=== PATIENT | male | born 1995 | race Caucasian/White ===

== ENCOUNTER 2016-07-31 16:19 | Emergency (ER) | payer OTHER ==
[~2016-07-31] VITALS: Ht 182.9 cm; Wt 99.8 kg
[~2016-07-31 16:19] MED LIST: AUGMENTIN 875 M1 TAB PO; MEDROL DOSEPAK1 PAC PO; TESSALON PERLE100 MG PO
[2016-07-31 16:29] VITALS: BP 149/84
--- NOTE | 2016-07-31 17:35 | ED INFLUENZA/URI COMPLAINT ---
History of Present Illness General Chief Complaint: General Adult Stated Complaint: PER PT "I THINK I HAVE A COLD" Source: patient Exam Limitations: no limitations Vital Signs & Intake/Output Vital Signs & Intake/Output Vital Signs Date Time Temp Pulse Resp B/P Pulse O2 O2 Flow FiO2 Ox Delivery Rate 07/31 1629 97.8 113 20 149/84 98 Room Air Allergies Coded Allergies: pollen extracts (Mild, BODY ACHE, RUNNY NOSE, SORE THROAT 07/31/16) Reconcile Medications Azithromycin (Zithromax) 500 MG TABLET 1 TAB PO DAILY BRONCHITIS Benzonatate 100 MG CAPSULE 1 CAP PO TID COUGH (Reported) Benzonatate (Tessalon Perle) 100 MG CAPSULE 1 CAP PO TID PRN COUGH Levocetirizine Dihydrochloride 5 MG TABLET 1 TAB PO DAILY ALLERGIES (Reported ) Mometasone Furoate (Nasonex) 50 MCG SPRAY.PUMP 2 SPRAY NASB DAILY ALLERGIES ( Reported) Mometasone Furoate (Nasonex) 50 MCG SPRAY.PUMP 2 SPRAY NASB DAILY CONGESTION Robitussin AC (Guaifenesin-Codeine Syrup) 200 MG-20 MG/10 ML LIQUID 10 ML PO QPM PRN COUGH Triage Note: TRIAGE: PT TO ER C/C RUNNY NOSE, ACHES, SORE THROAT, DIZZINESS WITH POSITION CHANGES, NON PRODUCTIVE COUGH AND BURNING LUNG PAIN WITH COUGHING. X 10 DAYS. SAW PMD MONDAY AND WAS TOLD IT WAS ALLERGIES. PRESCRIBED ?ALLERGY MEDICATION AND USING SAME PRESCRIBED WITH NO RELIEF IN S/S. STATES FELT WARM AT TIME BUT HAS NOT CHECKED HIS TEMP. AFEBRILE AT TRIAGE. Triage Nurses Notes Reviewed? yes Onset: Gradual Duration: constant Timing: recent history Severity: moderate Severity Numbers: 5 HPI: Patient is a 21-year-old male with an unremarkable past medical history who presents to emergency with a 10 day history of nonproductive cough nasal congestion chills and generalized weakness and fatigue. Patient was evaluated by urgent care facility 1 week ago was given antihistamine medications with no improvement of symptoms. Patient is an every day smoker. Patient states that father had similar symptoms however his symptoms are gone now. Denies any fevers States he had a sore throat on the first day however no sore throat for the past 9 days. Denies any neck pain neck stiffness, sinus pain, ear pain, shortness of breath abdominal pain rash Past History Travel History Traveled to [place] past 21 day No Medical History Any Pertinent Medical History? 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 No Review of Systems Review of Systems Constitutional: Reports: see HPI. EENTM: Reports: see HPI. Respiratory: Reports: see HPI, cough. Cardiovascular: Reports: no symptoms. GI: Reports: no symptoms. Genitourinary: Reports: no symptoms. Musculoskeletal: Reports: no symptoms. Skin: Reports: no symptoms. Neurological/Psychological: Reports: no symptoms. Hematologic/Endocrine: Reports: no symptoms. Immunologic/Allergic: Reports: no symptoms. All Other Systems: Reviewed and Negative Physical Exam Physical Exam General Appearance: no apparent distress, alert, comfortable Ears, Nose, Throat: hearing grossly normal, Tympanic normal, pharynx normal, nasal congestion, nasal drainage Comments: Well-developed well-nourished person in no acute distress HEENT extraocular motion intact, no nystagmus. Pupils equally round and reactive to light and accommodation. Nose is atraumatic. External auditory canal and Tympanic membranes clear. Pharynx normal. No swelling or edema. Nontender sinuses Neck: Supple, no lymphadenopathy, normal range of motion without pain or tenderness Back: Nontender, no CVA tenderness. Cardiovascular: Regular rate and rhythms no murmurs rubs or gallops, normal JVP Respiratory: Chest nontender. No respiratory distress.breath sounds clear to auscultation bilaterally Abdomen: Soft, nontender nondistended, no appreciable organomegaly. Normal bowel sounds. No ascites Extremity: No edema, no calf tenderness to palpation, normal and equal pulses. Neuro: Alert oriented x3, motor sensory normal, Skin: No appreciable rash on exposed skin, skin is warm and dry. Psych: Mood and affect is normal, memory and judgment is normal. Core Measures Severe Sepsis Present: No Septic Shock Present: No Progress Differential Diagnosis: influenza, meningitis, neutropenia, otitis, pneumonia, pharyngitis, sinusitis Plan of Care: Patient currently has clear lungs auscultation afebrile nontoxic appearing and will be treated for concerns of bronchitis. Patient was highly advised to discontinue smoking and follow up with primary care doctor as dictated in discharge instructions. Initial ED EKG: none Departure Departure Disposition: HOME OR SELF CARE Condition: Stable Clinical Impression Primary Impression: Bronchitis Referrals: ANAY BUNDY APRN (PCP/Family) Additional Instructions: As discussed please discontinue smoking. Begin the prescription of azithromycin for the full course. Begin the prescription OF TESSALON PERLES and Robitussin with codeine for cough. If symptoms worsen return to emergency room. Begin [id number] Mucinex and Sudafed for congestion. Begin the prescription Nasonex for congestion. If symptoms do not improve in one week follow-up with your primary care doctor Departure Forms: Customer Survey General Discharge Information Prescriptions: Current Visit Scripts Benzonatate (Tessalon Perle) 1 CAP PO TID PRN COUGH #21 CAP Robitussin AC (Guaifenesin-Codeine Syrup) 10 ML PO QPM PRN COUGH #100 ML Azithromycin (Zithromax) 1 TAB PO DAILY #5 TAB Mometasone Furoate (Nasonex) 2 SPRAY NASB DAILY #1 INHAL
[2016-07-31] MEDS ORDERED: LEVOCETIRIZINE D5 M1 PO (17:40)
[2016-07-31] MEDS ORDERED: BENZONATATE100 M1 PO (17:40)
[2016-07-31] MEDS ORDERED: NASONEX17 GM NASB ×2 (17:40→18:03)
[2016-07-31] MEDS ORDERED: TESSALON PERLE100 M1 PO (18:03)
[2016-07-31] MEDS ORDERED: ZITHROMAX500 M2 PO (18:03)
[2016-07-31] MEDS ORDERED: GUAIFENESIN-COD10 ML PO (18:03)
== END 2016-07-31 18:08 ==
LOC: ERH 16:19
DX: J40 Bronchitis, not specified as acute or chronic (principal); Z72.0 Tobacco use

== ENCOUNTER 2016-09-06 01:29 | Emergency (ER) | payer OTHER ==
[~2016-09-06 01:29] MED LIST changes: +BENZONATATE100 M1 PO; +GUAIFENESIN-COD10 ML PO; +LEVOCETIRIZINE D5 M1 PO; +NASONEX17 GM NASB; +TESSALON PERLE100 M1 PO; +ZITHROMAX500 M2 PO
[2016-09-06 02:28] LABS: ABSOLUTE BASOPHIL COUNT 0 /CUMM (0.0-0.2); ABSOLUTE EOSINOPHIL COUNT 0.3 /CUMM (0.0-0.7); ABSOLUTE GRANULOCYTE CT 4.8 /CUMM (1.4-6.5); ABSOLUTE LYMPH COUNT 3.5 /CUMM (1.2-3.4); ABSOLUTE MONOCYTE COUNT 0.9 /CUMM (0.10-0.60); BASOPHIL % 0.5 % (0.0-2.0); EOSINOPHIL % 3.6 % (0-5); GRANULOCYTE % 50.2 % (42.2-75.2); HEMATOCRIT 44.5 % (42-52); MEAN CORPUSCULAR HGB 29.4 PG (27.0-31.0); MEAN CORPUSCULAR HGB CONC 34.2 G/DL (33.0-37.0); MEAN CORPUSCULAR VOLUME 86.1 FL (80.0-94.0); MEAN PLATELET VOLUME 7.8 FL (7.4-10.4); PLATELET COUNT 431 /CUMM (130-400); RBC DISTRIBUTION WIDTH 13.5 % (11.5-14.5); RED BLOOD CELL CT 5.17 /CUMM (4.70-6.10); WHITE BLOOD CELL COUNT 9.6 /CUMM (4.8-10.8)
--- NOTE | 2016-09-06 02:54 | ED GI/GU/ABDOMINAL COMPLAINT ---
History of Present Illness General Chief Complaint: Abdominal Pain/Flank Pain Stated Complaint: RT SIDE BACK/FLANK PAIN Source: patient, old records Exam Limitations: no limitations Vital Signs & Intake/Output Vital Signs & Intake/Output Vital Signs Date Time Temp Pulse Resp B/P Pulse O2 O2 Flow FiO2 Ox Delivery Rate 09/06 0142 98.3 110 18 150/84 97 Room Air Allergies Coded Allergies: pollen extracts (Mild, BODY ACHE, RUNNY NOSE, SORE THROAT 07/31/16) Reconcile Medications Azithromycin (Zithromax) 500 MG TABLET 1 TAB PO DAILY BRONCHITIS Benzonatate 100 MG CAPSULE 1 CAP PO TID COUGH (Reported) Benzonatate (Tessalon Perle) 100 MG CAPSULE 1 CAP PO TID PRN COUGH Levocetirizine Dihydrochloride 5 MG TABLET 1 TAB PO DAILY ALLERGIES (Reported ) Mometasone Furoate (Nasonex) 50 MCG SPRAY.PUMP 2 SPRAY NASB DAILY ALLERGIES ( Reported) Mometasone Furoate (Nasonex) 50 MCG SPRAY.PUMP 2 SPRAY NASB DAILY CONGESTION Robitussin AC (Guaifenesin-Codeine Syrup) 200 MG-20 MG/10 ML LIQUID 10 ML PO QPM PRN COUGH Triage Note: PT NICKNAME LORENZO PT TO ED C/O RT FLANK AND RT GROIN PAIN OFF AND ON FOR 2-3 DAYS WITH +NAUSEA. DENIES V/D.DENIES UTI S/S. LAST BM WAS 2-3 HRS CARE COMPANION AND WAS NORMAL. Triage Nurses Notes Reviewed? yes HPI: Patient presents for evaluation of right flank pain. The pains have been intermittent over the past 3 weeks. The pains became worse over the last 48 hours. The pain is located over the right flank. Patient describes the pain as a dull pain at about a 6 out of 10 intensity. He has tried intermittent doses of Tylenol with inconsistent relief. Patient denies any associated nausea, vomiting, diarrhea, fever, chills, dysuria, hematuria. Past History Travel History Traveled to [place] past 21 day No Medical History Any Pertinent Medical History? 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 No Review of Systems Review of Systems Constitutional: Reports: no symptoms. EENTM: Reports: no symptoms. Respiratory: Reports: no symptoms. Cardiovascular: Reports: no symptoms. GI: Reports: see HPI. Genitourinary: Reports: no symptoms. Musculoskeletal: Reports: no symptoms. Skin: Reports: no symptoms. Neurological/Psychological: Reports: no symptoms. Hematologic/Endocrine: Reports: no symptoms. Immunologic/Allergic: Reports: no symptoms. All Other Systems: Reviewed and Negative Physical Exam Physical Exam Gastrointestinal: see below Comments: Gen.: Well-nourished, well-developed, no acute respiratory distress. Head: Normocephalic, atraumatic. Eyes: Normal inspection bilaterally Ears: Normal inspection bilaterally Nose: Normal inspection Throat/mouth : Moist mucosa Neck: Supple, full range of motion, no goiter Heart: Regular rate and rhythm, no murmurs rubs or gallops Lungs: Clear to auscultation bilaterally with normal air entry Chest: Nontender Back: Normal range of motion, mild tenderness over the right flank Abdomen: Soft, nontender, nondistended, normal bowel sounds Extremities: Normal range of motion grossly, equal radial pulses, no cyanosis clubbing or edema Neurologic: Cranial nerves grossly intact, speech is clear Skin: warm and dry Psychiatric: Calm, cooperative, no apparent delusions or hallucinations Core Measures ACS in differential dx? No Severe Sepsis Present: No Septic Shock Present: No Progress Differential Diagnosis: appendicitis, biliary colic, pancreatitis, pyelonephritis, ureterolithiasis Plan of Care: Orders Procedure Date/time Status LIPASE 09/06 212 Complete COMPREHENSIVE METABOLIC PANEL 09/06 212 Complete CBC WITHOUT DIFFERENTIAL 09/06 212 Complete AMYLASE 09/06 212 Complete URINALYSIS 09/06 0151 Complete Laboratory Tests 09/06/16 0215: Anion Gap 12, Estimated GFR > 60, BUN/Creatinine Ratio 14.3, Glucose 113 H, Calcium 10.3 H, Total Bilirubin 0.7, AST 135 H, ALT 257 H, Alkaline Phosphatase 94, Total Protein 8.4 H, Albumin 4.8, Globulin 3.6, Albumin/ Globulin Ratio 1.3, Amylase 37, Lipase 108, CBC w Diff NO MAN DIFF REQ, RBC 5.17 , MCV 86.1, MCH 29.4, RDW 13.5, MPV 7.8, Gran % 50.2, Lymphocytes % 36.5, Monocytes % 9.2, Eosinophils % 3.6, Basophils % 0.5, Absolute Granulocytes 4.8, Absolute Lymphocytes 3.5 H, Absolute Monocytes 0.9 H, Absolute Eosinophils 0.3 , Absolute Basophils 0, PUBS MCHC 34.2 09/06/16 0154: Urine Color YEL, Urine Clarity CLEAR, Urine pH 6.0, Ur Specific [place] >= 1.030 , Urine Protein TRACE H, Urine Ketones NEG, Urine Nitrite NEG, Urine Bilirubin NEG, Urine Urobilinogen 0.2, Ur Leukocyte Esterase NEG, Ur Microscopic SEDIMENT EXAMINED, Urine RBC 1-3, Ur Epithelial Cells RARE, Urine Mucus RARE, Urine Hemoglobin SMALL H, Urine Glucose NEG Diagnostic Imaging: Discussed w/RAD: CT Scan. Radiology Impression: PATIENT: WALLACE SANCHEZ PRESENT AGE: 21 PATIENT ACCOUNT NO: [id number] : 94 LOCATION: [facility] ORDERING PHYSICIAN: LEROY DEAN MD SERVICE DATE: 09/06/16 EXAM TYPE: CAT - CT ABD & PELVIS W/O IV CONTRAS EXAMINATION: CT ABDOMEN AND PELVIS WITHOUT CONTRAST CLINICAL INFORMATION: Right flank pain. Right renal colic. COMPARISON: Ultrasound abdomen limited 05/12/2015 TECHNIQUE: Multidetector volumetric imaging was performed from the superior aspect of the liver through the pubic symphysis. Sagittal and coronal reformatted images were obtained on the technologist's workstation. DLP: 629.3 mGy-cm FINDINGS: LUNG BASES: The visualized lung bases are unremarkable. LIVER, GALLBLADDER, AND BILIARY TREE: Diffuse fatty change of liver. No focal liver lesion. No intrahepatic bile duct dilatation The gallbladder is unremarkable with no evidence of radiopaque gallstones, gallbladder wall thickening, or obvious pericholecystic inflammatory changes. PANCREAS: Unremarkable. SPLEEN: Unremarkable. ADRENAL GLANDS: Unremarkable. KIDNEYS AND URETERS: The kidneys are normal in size, shape, and attenuation. No hydronephrosis, hydroureter, or calculi seen. No perinephric stranding. BLADDER: Unremarkable. GASTROINTESTINAL TRACT: The small and large bowel are unremarkable. The appendix is unremarkable. ABDOMINAL WALL: No significant hernia is appreciated. LYMPH NODES: Normal. VASCULAR: Unremarkable. PELVIC VISCERA: Unremarkable. OSSEOUS STRUCTURES: Unremarkable. IMPRESSION: No acute abnormality CT scan abdomen pelvis. Normal CT scan of kidney, ureter and bladder. Diffuse fatty change of liver. DICTATED BY: MYRA KELLY MD DATE/TIME DICTATED:09/06/16337 MARKETING ADMINISTRATIVE ASSISTANT:SONALI DATE/TIME TRANSCRIBED:337 CONFIDENTIAL, DO NOT COPY WITHOUT APPROPRIATE AUTHORIZATION. < Electronically signed in Other Vendor System> SIGNED BY: MYRA KELLY MD [id number] Initial ED EKG: none Comments: 09/06/2016 4:09:52 AM I have updated cemalettin on test results. Departure Departure Disposition: HOME OR SELF CARE Condition: Stable Clinical Impression Primary Impression: Flank pain Secondary Impressions: Fatty liver, Transaminitis Referrals: ANAY BUNDY APRN (PCP/Family) Additional Instructions: Increase your fluid intake over the next few days. Rest, no exertion or heavy lifting. Follow-up with your primary care physician for reevaluation and further testing this week. Return if any concerns or sudden worsening. Please note that there might be incidental findings in your evaluation that are unrelated to the current emergency department visit. Please notify your primary care doctor about this emergency department visit in order to obtain and review all of the testing performed so that these incidental findings can be monitored as needed. Please note that there might be incidental findings in your evaluation that are unrelated to the current emergency department visit. Please notify your primary care doctor about this emergency department visit in order to obtain and review all of the testing performed so that these incidental findings can be monitored as needed. If you had an x-ray performed, please understand that some fractures may not be seen on the initial set of x-rays. If your symptoms persist you might need a repeat set of x-rays to check for such a fracture. If you had a laceration evaluated, please understand that foreign bodies such as glass or wood may not be visible to the naked eye or on plain x-rays. If the wound becomes red, swollen, increasingly more painful or if there is any drainage from the wound, please have it reevaluated by a physician for the possibility of a retained foreign body. Thank you for choosing the [facility] Emergency Department for your care. It was a pleasure to serve you today. Leroy Dean M.D. [facility] Departure Forms: Customer Survey General Discharge Information Prescriptions: Current Visit Scripts Naproxen (Naprosyn) 1 TAB PO BID #20 TAB Cyclobenzaprine HCl 1 TAB PO TID PRN MUSCLE SPASMS #30 TAB
--- NOTE | 2016-09-06 03:46 | CT SCAN REPORT ---
EXAMINATION: CT ABDOMEN AND PELVIS WITHOUT CONTRAST CLINICAL INFORMATION: Right flank pain. Right renal colic. COMPARISON: Ultrasound abdomen limited 05/12/2015 TECHNIQUE: Multidetector volumetric imaging was performed from the superior aspect of the liver through the pubic symphysis. Sagittal and coronal reformatted images were obtained on the technologist's workstation. DLP: 629.3 mGy-cm FINDINGS: LUNG BASES: The visualized lung bases are unremarkable. LIVER, GALLBLADDER, AND BILIARY TREE: Diffuse fatty change of liver. No focal liver lesion. No intrahepatic bile duct dilatation The gallbladder is unremarkable with no evidence of radiopaque gallstones, gallbladder wall thickening, or obvious pericholecystic inflammatory changes. PANCREAS: Unremarkable. SPLEEN: Unremarkable. ADRENAL GLANDS: Unremarkable. KIDNEYS AND URETERS: The kidneys are normal in size, shape, and attenuation. No hydronephrosis, hydroureter, or calculi seen. No perinephric stranding. BLADDER: Unremarkable. GASTROINTESTINAL TRACT: The small and large bowel are unremarkable. The appendix is unremarkable. ABDOMINAL WALL: No significant hernia is appreciated. LYMPH NODES: Normal. VASCULAR: Unremarkable. PELVIC VISCERA: Unremarkable. OSSEOUS STRUCTURES: Unremarkable. IMPRESSION: No acute abnormality CT scan abdomen pelvis. Normal CT scan of kidney, ureter and bladder. Diffuse fatty change of liver.
[2016-09-06] MEDS ORDERED: CYCLOBENZAPRINE10 M1 PO (04:09)
[2016-09-06] MEDS ORDERED: NAPROSYN500 M1 PO (04:09)
[2016-09-06 04:17] VITALS: BP 146/78
== END 2016-09-06 04:17 ==
LOC: ERH 01:29
PROVIDERS: Emergency Medicine
DX: K76.0 Fatty (change of) liver, not elsewhere classified (principal); R74.0 Nonspecific elevation of levels of transaminase and lactic acid dehydrogenase [LDH]
CPT/HCPCS: 74176; 81001

== ENCOUNTER 2016-11-14 19:06 | Emergency (ER) | payer OTHER ==
[~2016-11-14] VITALS: Ht 175.3 cm; Wt 99.8 kg
[~2016-11-14 19:06] MED LIST changes: +CYCLOBENZAPRINE10 M1 PO; +NAPROSYN500 M1 PO
--- NOTE | 2016-11-14 22:05 | ED CARDIAC/CP/PALPITATIONS ---
History of Present Illness General Chief Complaint: Chest Pain Stated Complaint: CP Source: patient, family, old records Exam Limitations: no limitations Vital Signs & Intake/Output Vital Signs & Intake/Output Vital Signs Date Time Temp Pulse Resp B/P B/P Pulse O2 O2 Flow FiO2 Mean Ox Delivery Rate 11/14 2332 98.1 86 18 131/75 99 Room Air 11/14 2147 Room Air 11/14 1917 99.6 92 18 154/88 00 Room Air ED Intake and Output 11/15 0000 11/14 1200 Intake Total Output Total Balance Patient 220 lb Weight Allergies Coded Allergies: pollen extracts (Mild, BODY ACHE, RUNNY NOSE, SORE THROAT 07/31/16) Reconcile Medications Levocetirizine Dihydrochloride 5 MG TABLET 1 TAB PO DAILY ALLERGIES (Reported ) Naproxen (Naprosyn) 500 MG TABLET 1 TAB PO Q12H PRN pain Triage Note: PT TO ED C/O SQUEEZING CHEST PAIN SINCE 1 PM. WAS 7-8/10 FOR 2 HRS, NOW DOWN TO 4/10. LEFT ARM NUMB AND TINGLING APPROX 3 PM AFTER PAIN HAD STARTED GETTING BETTER. "I SNEEZED AND I FELT A SHOOTING PAIN DOWN MY RIGHT ARM" DENIES N/V/DIZZINESS. SOB COMES AND GOES. DENIES SOB AT THIS TIME. STATES CP ALSO HAPPENED 3 DAYS AGO BUT "IT OMLY LASTED FOR A COUPLE OF MINIUTES. NO CHANGE WITH PALPATION OR INSPIRATION AT THIS TIME. "PAIN MADE IT HARD TO BREATH" "I THOUGHT IT MIGHT BE A PANIC ATTACK" Triage Nurses Notes Reviewed? yes HPI: Patient is a 21-year-old male presents complaining of chest pain. Chest pain onset approximately 3 days ago lasted for a couple of minutes and resolved. Today pain returned at approximately 12:30 PM has been waxing and waning since onset. Pain is currently mild. Patient reports symptoms worsen with deep breath. Patient denies lower extremity pain, lower extremity swelling, cough, fevers, chills. (LULU SUAZO,MERYL) Past History Travel History Traveled to [place] past 21 day No Medical History Any Pertinent Medical History? see below for history Neurological: NONE EENT: NONE Cardiovascular: hypertension Respiratory: NONE Gastrointestinal: FATTY LIVER Hepatic: NONE Renal: NONE Musculoskeletal: NONE Psychiatric: NONE Endocrine: NONE Blood Disorders: NONE Cancer(s): NONE DIRECTOR OF DESIGN/Reproductive: NONE Surgical History Surgical History: non-contributory Psychosocial History What is your primary language Romanian Tobacco Use: Current Daily Use Daily Tobacco Use Amount/Type: =< 4 Cigarettes daily ETOH Use: denies use Illicit Drug Use: denies illicit drug use Family History Hx Contributory? No (MERYL CHICAS) Review of Systems Review of Systems Constitutional: Reports: see HPI. EENTM: Reports: no symptoms. Respiratory: Reports: short of breath. Cardiovascular: Reports: chest pain. Denies: palpitations, peripheral edema. GI: Reports: no symptoms. Musculoskeletal: Reports: no symptoms. Skin: Reports: no symptoms. Neurological/Psychological: Reports: no symptoms. Hematologic/Endocrine: Reports: no symptoms. Immunologic/Allergic: Reports: no symptoms. (MERYL CHICAS) Physical Exam Physical Exam General Appearance: well developed/nourished, alert, awake Head: atraumatic, normal appearance Eyes: Bilateral: normal appearance, PERRL, EOMI. Ears, Nose, Throat: normal pharynx, normal ENT inspection, hearing grossly normal Neck: normal inspection, supple, full range of motion Respiratory: normal breath sounds, chest non-tender, no respiratory distress, lungs clear Cardiovascular: regular rate/rhythm, no appreciable murmur rub or gallop Peripheral Pulses: 2+ dorsalis pedis (R), 2+ dorsalis pedis (L) Gastrointestinal: soft, non-tender Back: normal inspection, normal range of motion Extremities: normal inspection, normal capillary refill, normal range of motion, no edema Neurologic/Psych: no motor/sensory deficits, awake, alert, oriented x 3, normal gait, normal mood/affect Skin: intact, normal color, warm/dry Lymphatic: no anterior cervical christin Core Measures ACS in differential dx? Yes ASA ordered for poss ACS? No-ACS ruled out Severe Sepsis Present: No Septic Shock Present: No (MERYL CHICAS) Progress Differential Diagnosis: AMI, aortic dissection, musculoskeletal pain, myocarditis, pericarditis, pneumonia, pneumothorax, PSVT, pulmonary embolism, PUD/GERD, unstable angina Plan of Care: Orders Procedure Date/time Status Telemetry/Research And Insights Executive 11/15 2211 Active TROPONIN LEVEL 11/15 2211 Complete D-DIMER 11/15 2211 Complete COMPREHENSIVE METABOLIC PANEL 11/15 2211 Complete CBC WITHOUT DIFFERENTIAL 11/15 2211 Complete EKG 11/14 190 Active Laboratory Tests 11/14/162218: Anion Gap 15, Estimated GFR > 60, BUN/Creatinine Ratio 14.3, Glucose 92, Calcium 10.4 H, Total Bilirubin 0.6, AST 83 H, ALT 199 H, Alkaline Phosphatase 92, Troponin I < 0.01, Total Protein 9.0 H, Albumin 5.0, Globulin 4.0, Albumin/ Globulin Ratio 1.3, D-Dimer < 200, CBC w Diff NO MAN DIFF REQ, RBC 5.40, MCV 87.0, MCH 29.4, RDW 13.6, MPV 7.6, Gran % 59.3, Lymphocytes % 29.5, Monocytes % 7.8, Eosinophils % 2.6, Basophils % 0.8, Absolute Granulocytes 6.5, Absolute Lymphocytes 3.2, Absolute Monocytes 0.9 H, Absolute Eosinophils 0.3, Absolute Basophils 0.1, PUBS MCHC 33.8 11/14/2016 11:06:12 PM: Results of labs discussed with patient. Symptoms are currently minimal, patient resting comfortably. Chest x-ray ordered. 11/14/2016 11:33:34 PM: Results of chest x-ray discussed with the patient his family. Symptoms greater than 8 hours at the time of troponin being drawn. D- dimer was negative chest x-ray unremarkable. Patient appears stable for discharge with close outpatient follow-up. (LULU SUAZO,MERYL) Diagnostic Imaging: Viewed by Me: Radiology Read. Discussed w/RAD: Radiology Read. Radiology Impression: PATIENT: WALLACE SANCHEZ PRESENT AGE: 21 PATIENT ACCOUNT NO: [id number] : 94 LOCATION: [facility] ORDERING PHYSICIAN: MERYL SUAZO SERVICE DATE: 11/14/16 EXAM TYPE: RAD - XRY-CHEST XRAY, PA AND LATERAL EXAMINATION: XR CHEST CLINICAL INFORMATION: Chest pain COMPARISON: None TECHNIQUE: 2 views of the chest were obtained. FINDINGS: No significant abnormality is noted involving the heart, lungs, mediastinum, bony thorax or soft tissues. IMPRESSION: Unremarkable examination. 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 <Electronically signed in Other Vendor System> SIGNED BY: MYRA KELLY MD 11/14/16 7291 Initial ED EKG: SINUS TACHYCARDIA 103 BPM q WAVES IN THE INFERIOR LEADS, INVERTED t-WAVE IN LEAD 3, NONSPECIFIC st CHANGES Rhythm Strip: normal sinus rhythm (MERYL CHICAS) Departure Departure Disposition: HOME OR SELF CARE Condition: Stable Clinical Impression Primary Impression: Chest pain Qualifiers: Chest pain type: unspecified Qualified Code: R07.9 - Chest pain, unspecified Referrals: ANAY BUNDY APRN (PCP/Family) Additional Instructions: Follow up with your primary care provider within 1 week for further evaluation. Call tomorrow morning for appointment. Return to the ER if worsening of symptoms. Departure Forms: Customer Survey General Discharge Information Prescriptions: Current Visit Scripts Naproxen (Naprosyn) 1 TAB PO Q12H PRN pain #15 TAB (MERYL CHICAS) PA/STRIPE MARKER Co-Sign Statement Statement: ED Attending supervision documentation- [] I saw and evaluated the patient. I have also reviewed all the pertinent lab results and diagnostic results. I agree with the findings and the plan of care as documented in the PA's/STRIPE MARKER's documentation. [X] I have reviewed the ED Record and agree with the PA's/STRIPE MARKER's documentation. [] Additions or exceptions (if any) to the PAs/STRIPE MARKER's note and plan are summarized below: [] (JUDE ARCEO,ANGELA Garrett) Critical Care Note Critical Care Note Critical Care Time: non-applicable (MERYL CHICAS)
[2016-11-14 22:27] LABS: ABSOLUTE BASOPHIL COUNT 0.1 /CUMM (0.0-0.2); ABSOLUTE EOSINOPHIL COUNT 0.3 /CUMM (0.0-0.7); ABSOLUTE GRANULOCYTE CT 6.5 /CUMM (1.4-6.5); ABSOLUTE LYMPH COUNT 3.2 /CUMM (1.2-3.4); ABSOLUTE MONOCYTE COUNT 0.9 /CUMM (0.10-0.60); BASOPHIL % 0.8 % (0.0-2.0); EOSINOPHIL % 2.6 % (0-5); GRANULOCYTE % 59.3 % (42.2-75.2); HEMATOCRIT 46.9 % (42-52); MEAN CORPUSCULAR HGB 29.4 PG (27.0-31.0); MEAN CORPUSCULAR HGB CONC 33.8 G/DL (33.0-37.0); MEAN PLATELET VOLUME 7.6 FL (7.4-10.4); PLATELET COUNT 423 /CUMM (130-400); RBC DISTRIBUTION WIDTH 13.6 % (11.5-14.5); WHITE BLOOD CELL COUNT 10.9 /CUMM (4.8-10.8)
--- NOTE | 2016-11-14 23:28 | RADIOLOGY REPORT ---
EXAMINATION: XR CHEST CLINICAL INFORMATION: Chest pain COMPARISON: None TECHNIQUE: 2 views of the chest were obtained. FINDINGS: No significant abnormality is noted involving the heart, lungs, mediastinum, bony thorax or soft tissues. IMPRESSION: Unremarkable examination.
[2016-11-14] MEDS ORDERED: NAPROSYN500 M1 PO (23:31)
[2016-11-14 23:32] VITALS: BP 131/75
== END 2016-11-14 23:40 ==
LOC: ERH 19:06
PROVIDERS: Physician Assistant
DX: R07.9 Chest pain, unspecified (principal)
CPT/HCPCS: 93005; 93010

== ENCOUNTER 2017-09-27 21:46 | Emergency (ER) | payer OTHER ==
[~2017-09-27] VITALS: Ht 182.9 cm; Wt 104.3 kg
--- NOTE | 2017-09-27 23:36 | ED GENERAL ADULT ---
History of Present Illness General Chief Complaint: Chest Pain Stated Complaint: CHEST PAIN WHILE EATING TONIGHT, L ARM NUMBNESS Source: patient Exam Limitations: no limitations Vital Signs & Intake/Output Vital Signs & Intake/Output Vital Signs Date Time Temp Pulse Resp B/P B/P Pulse O2 O2 Flow FiO2 Mean Ox Delivery Rate 09/28 0208 98.7 81 18 141/73 99 Room Air 09/28 0014 99 Room Air 09/27 2150 96.9 114 18 99/61 100 Room Air ED Intake and Output 09/28 0000 09/27 1200 Intake Total Output Total Balance Patient 230 lb Weight Weight Reported by Patient Measurement Method Allergies Coded Allergies: pollen extracts (Mild, BODY ACHE, RUNNY NOSE, SORE THROAT 07/31/16) Reconcile Medications Levocetirizine Dihydrochloride 5 MG TABLET 1 TAB PO DAILY ALLERGIES (Reported ) Naproxen (Naprosyn) 500 MG TABLET 1 TAB PO Q12H PRN pain Triage Note: PT TO TRIAGE C/O MID SUBSTERNAL CP THAT BEGAN WHILE EATING A Q[place] JUST SHOP SUPERINTENDENT ASSOCIATED WITH L ARM NUMBNESS PER PT. STATES PAIN HAS SINCE SUBSIDED. STATES HX HTN, NOT HYPERTENSIVE IN TRIAGE. Triage Nurses Notes Reviewed? yes Onset: Abrupt Duration: hour(s): (4) Timing: remote history Injury Environment: home Severity: moderate Severity Numbers: 5 No Modifying Factors: none HPI: Patient is a 22-year-old male with history of hypertension presenting to the emergency Department chief complaint of centralized chest pain that began about 4 hours prior to arrival while he was eating a quesadilla. He scraped the pain is sharp and stabbing. Denies any associated shortness of breath. No palpitations. Did not take anything to help with symptoms are travel. History of chest pain. Denies any family history of any cardiac issues. Patient also reports associated left arm tingling which has since then subsided. Chest pain currently 4 out of 10, it was 5 out of 10. No nausea or vomiting. Denies jaw pain. (Mandy Jones) Past History Travel History Traveled to [place] past 21 day No Medical History Any Pertinent Medical History? see below for history Neurological: NONE EENT: NONE Cardiovascular: hypertension Respiratory: NONE Gastrointestinal: FATTY LIVER Hepatic: NONE Renal: NONE Musculoskeletal: NONE Psychiatric: NONE Endocrine: NONE Blood Disorders: NONE Cancer(s): NONE SERVICE ATTENDANT/Reproductive: NONE Surgical History Surgical History: non-contributory Psychosocial History What is your primary language Thai Tobacco Use: Current Daily Use Daily Tobacco Use Amount/Type: =< 4 Cigarettes daily ETOH Use: denies use Family History Hx Contributory? No (Mandy Jones) Review of Systems Review of Systems Constitutional: Reports: no symptoms. Comments Review of systems: See HPI, All other systems negative. Constitutional, no chills fever or weight loss HEENT: No visual changes no sore throat no congestion Cardiovascular: No palpitation , orthopnea or ankle swelling Skin, no jaundice no rashes Respiratory: No dyspnea cough sputum or hemoptysis GI: No nausea no vomiting : No dysuria No hematuria Muscle skeletal: no back pain, no neck pain, Neurologic:NO HEADACHES no confusion Psych: No stress anxiety or depression,. Heme/endocrine: No bruising no bleeding no polyuria or polydipsia Immunology: No splenectomy or history of AIDS (Mandy Jones) Physical Exam Physical Exam General Appearance: well developed/nourished, no apparent distress, alert, awake , comfortable Comments: Well-developed well-nourished person in no acute distress HEENT: Atraumatic, normocephalic Neck: Normal inspection Back: Nontender Cardiovascular: Regular rate and rhythms no murmurs rubs or gallops, normal JVP Respiratory: Chest nontender. No respiratory distress.breath sounds clear to auscultation bilaterally Abdomen: Soft, nontender nondistended, no appreciable organomegaly. Normal bowel sounds. No ascites, no rebound or guarding. Extremity: No edema, no calf tenderness to palpation, normal and equal pulses. Neuro: Alert oriented x3 Skin: No appreciable rash on exposed skin, skin is warm and dry. Psych: Mood and affect is normal, memory and judgment is normal. Core Measures ACS in differential dx? Yes CVA/TIA Diagnosis: No Sepsis Present: No Sepsis Focused Exam Completed? No (Mandy Jones) Progress Differential Diagnoses I considered the following diagnoses in my evaluation of the patient: ACS, costochondritis, pneumonia, muscular strain, acid reflux, PE Plan of Care: Orders Procedure Date/time Status Telemetry/Microfilming Document Preparer 09/27 235 Active D-DIMER 09/28 2351 Complete TROPONIN LEVEL 09/27 2324 Complete COMPREHENSIVE METABOLIC PANEL 09/27 2324 Complete CBC WITHOUT DIFFERENTIAL 09/27 2324 Complete EKG 09/28 2147 Active Laboratory Tests 09/28/17 0012: Anion Gap 13, Estimated GFR > 60, BUN/Creatinine Ratio 15.7, Glucose 103 H, Calcium 10.6 H, Total Bilirubin 0.7, AST 58, ALT 119 H, Alkaline Phosphatase 72, Troponin I < 0.01, Total Protein 8.1, Albumin 4.8, Globulin 3.3, Albumin/ Globulin Ratio 1.5, D-Dimer High Sensitivty < 200, CBC w Diff NO MAN DIFF REQ, RBC 5.19, MCV 85.4, MCH 29.4, MCHC 34.5, RDW 13.3, MPV 7.9, Gran % 55.9, Lymphocytes % 33.7, Monocytes % 7.1, Eosinophils % 2.6, Basophils % 0.7, Absolute Granulocytes 5.1, Absolute Lymphocytes 3.1, Absolute Monocytes 0.6, Absolute Eosinophils 0.2, Absolute Basophils 0.1 09/28/2017 1:13:48 AM patient feeling much improved after Toradol and GI cocktail. No longer having symptoms. Patient informed of lab worK results. Still pending x-ray at this time. D-dimer is negative. Troponins negative. EKG is unchanged and symptoms resolved after Toradol and GI cocktail. Patient discharged home. he'll follow-up with his primary care physician 1-2 Days. Educated on signs and symptoms return. Patient nontoxic. D/W DR COOPER AND SHE AGREES WITH PLAN. Diagnostic Imaging: Viewed by Me: Radiology Read. Discussed w/RAD: Radiology Read. Radiology Impression: PATIENT: WALLACE SANCHEZ PRESENT AGE: 22 PATIENT ACCOUNT NO: [id number] : 94 LOCATION: [facility] ORDERING PHYSICIAN: Mandy SUAZO SERVICE DATE: 09/28/170017 EXAM TYPE: RAD - XRY-CHEST XRAY, TWO VIEWS EXAMINATION: XR CHEST CLINICAL INFORMATION: Chest pain , rule out pneumonia COMPARISON: 11/14/2016 TECHNIQUE: 2 views of the chest were obtained. FINDINGS: The lungs are clear with no focal consolidation. No evidence of pneumothorax, pulmonary edema, or pleural effusions. The cardiomediastinal silhouette is unremarkable. No acute osseous findings. IMPRESSION: No acute cardiopulmonary findings. DICTATED BY: Royr Rich MD DATE/TIME DICTATED:153 PRODUCT MANAGEMENT INTERNSHIP:[employer] DATE/TIME TRANSCRIBED:09/28/17153 CONFIDENTIAL, DO NOT COPY WITHOUT APPROPRIATE AUTHORIZATION. <Electronically signed in Other Vendor System> SIGNED BY: Rory Rich MD 09/28/17157 Initial ED EKG: SINUS TACHYCARDIA Prior EKG: unchanged (Mandy Jones) Departure Departure Time of Disposition: 0200 Disposition: HOME OR SELF CARE Condition: Stable Clinical Impression Primary Impression: Chest pain Qualifiers: Chest pain type: unspecified Qualified Code: R07.9 - Chest pain, unspecified Referrals: Liyah Nayak APRN (PCP/Family) Additional Instructions: Follow-up with your primary care physician in the next 1-2 days, call to make an appointment. Take [id number] Pepcid as directed for the next 5-7 days. Increase fluids. Return for worsening symptoms or concerns. Departure Forms: Customer Survey General Discharge Information (Mandy Jones) PA/SVP BUSINESS DEVELOPMENT Co-Sign Statement Statement: ED Attending supervision documentation- [] I saw and evaluated the patient. I have also reviewed all the pertinent lab results and diagnostic results. I agree with the findings and the plan of care as documented in the PA's/SVP BUSINESS DEVELOPMENT's documentation. [X] I have reviewed the ED Record and agree with the PA's/SVP BUSINESS DEVELOPMENT's documentation. [] Additions or exceptions (if any) to the PAs/SVP BUSINESS DEVELOPMENT's note and plan are summarized below: [] (Maicol ARCEO,Vicky) Critical Care Note Critical Care Note Critical Care Time: non-applicable (Mandy Jones)
[2017-09-28 00:30] LABS: ABSOLUTE BASOPHIL COUNT 0.1 /CUMM (0.0-0.2); ABSOLUTE EOSINOPHIL COUNT 0.2 /CUMM (0.0-0.7); ABSOLUTE GRANULOCYTE CT 5.1 /CUMM (1.4-6.5); ABSOLUTE LYMPH COUNT 3.1 /CUMM (1.2-3.4); ABSOLUTE MONOCYTE COUNT 0.6 /CUMM (0.10-0.60); BASOPHIL % 0.7 % (0.0-2.0); EOSINOPHIL % 2.6 % (0-5); GRANULOCYTE % 55.9 % (42.2-75.2); HEMATOCRIT 44.3 % (42-52); MEAN CORPUSCULAR HGB 29.4 PG (27.0-31.0); MEAN CORPUSCULAR HGB CONC 34.5 G/DL (33.0-37.0); MEAN CORPUSCULAR VOLUME 85.4 FL (80.0-94.0); MEAN PLATELET VOLUME 7.9 FL (7.4-10.4); PLATELET COUNT 430 /CUMM (130-400); RBC DISTRIBUTION WIDTH 13.3 % (11.5-14.5); RED BLOOD CELL CT 5.19 /CUMM (4.70-6.10); WHITE BLOOD CELL COUNT 9.2 /CUMM (4.8-10.8)
--- NOTE | 2017-09-28 01:58 | RADIOLOGY REPORT ---
EXAMINATION: XR CHEST CLINICAL INFORMATION: Chest pain, rule out pneumonia COMPARISON: 11/14/2016 TECHNIQUE: 2 views of the chest were obtained. FINDINGS: The lungs are clear with no focal consolidation. No evidence of pneumothorax, pulmonary edema, or pleural effusions. The cardiomediastinal silhouette is unremarkable. No acute osseous findings. IMPRESSION: No acute cardiopulmonary findings.
[2017-09-28 02:08] VITALS: BP 141/73
== END 2017-09-28 02:08 ==
LOC: ERH 21:46
PROVIDERS: Physician Assistant
DX: R07.9 Chest pain, unspecified (principal)
CPT/HCPCS: 71046; 93005; 93010; 96372; J1885